=== PATIENT | female | born 1935 | race Caucasian/White ===

== ENCOUNTER 2017-12-12 18:11 | Emergency (ER) | payer OTHER ==
[~2017-12-12] VITALS: Ht 154.9 cm; Wt 62.3 kg
[~2017-12-12 18:11] MED LIST: ARICEPT 5 MG TAB5 MG PO; ASPIR 8181 M1 PO; BIOFREEZE118 ML PO; CALCIUM500 MG PO; CATALYN PO; CIPRO500 MG PO; DULOXETINE HCL30 MG PO; FLAGYL500 MG PO; GABAPENTIN 100100 MG PO; GLUCOSAMINE HC500 MG PO; HYDROCODONE-AP1 EAC6 PO; LEVOTHYROXINE 0.1 MG PO; LEVOTHYROXINE0.05 MG PO; MIRALAX17 GM PO; OMEGA-31000 M1 PO; ONDANSETRON HCL4 M2 PO; RENATROPHIN PO; SYSTANE 0.3-0.1 EACH OPHTHALMIC; ZANAFLEX4 MG PO; ZESTRIL10 MG PO; ZOCOR20 MG PO; [UNRECOGNIZED DRUG - REMARK]
[2017-12-12 18:33] LABS: URINE BILIRUBIN NEGATIVE (Negative); URINE BLOOD TRACE (Negative); URINE CLARITY CLEAR; URINE COLOR YELLOW; URINE GLUCOSE-RANDOM NEGATIVE (Negative); URINE KETONES 1+ (Negative); URINE LEUKOCYTES-REFLEX NEGATIVE (Negative); URINE NITRITE-REFLEX NEGATIVE (Negative); URINE PROTEIN NEGATIVE (Negative); URINE SPECIFIC GRAVITY 1.015 (1.005-1.030); URINE UROBILINOGEN 0.2 E.U./dl (0.2-1.0)
[2017-12-12 18:36] LABS: ABSOLUTE LYMPHOCYTES 0.9 thou/uL (0.8-5.3); ABSOLUTE MONOCYTES 0.3 thou/uL (0.0-1.2); ABSOLUTE NEUTROPHILS 5.7 thou/uL (1.6-8.1); BASOPHILS 0.4 %; EOSINOPHILS 0.1 %; HEMATOCRIT 47.9 % (37.0-47.0); HEMOGLOBIN 16.2 gm/dL (12.0-15.0); LYMPHOCYTES 12.7 %; MCH 32.1 pg (26.0-34.0); MCHC 33.8 g/dL (28.0-37.0); MCV 94.8 fL (80.0-100.0); MONOCYTES 4.5 %; MPV 8.7 fl. (7.2-11.1); NUCLEATED RBCS 0 /100WBC; PLATELET COUNT* 152 thou/uL (150-400); POLYS 82.3 %; RBC 5.05 mil/uL (4.20-5.00); RDW-CV 12.7 % (10.5-14.5); WBC 6.9 thou/uL (4.0-11.0)
[2017-12-12 18:43] LABS: ANION GAP 10 mmol/L (7-16); APTT 28.3 Seconds (25.0-31.3); BUN 14 mg/dL (7-18); CHLORIDE 96 mmol/L (98-107); CO2 28 mmol/L (21-32); GLUCOSE 151 mg/dL (70-99); INR 1.1; POTASSIUM 3.3 mmol/L (3.5-5.1); PROTIME 10.7 Seconds (9.20-11.50); SODIUM 134 mmol/L (136-145)
[2017-12-12 18:50] LABS: ALBUMIN 4.2 g/dL (3.4-5.0); ALKALINE PHOSPHATASE 98 U/L (46-116); LIPASE 361 U/L (73-393); SGOT 33 U/L (15-37); SGPT 31 U/L (30-65); TOTAL BILIRUBIN 0.6 mg/dL (<0.1-1.0); TOTAL PROTEIN 7.2 g/dL (6.4-8.2); TROPONIN-I LEVEL <0.06 ng/mL (<0.06)
[2017-12-12] MEDS ORDERED: ZOFRAN ODT4 MG PO (21:20)
[2017-12-12 21:45] VITALS: BP 178/88
--- NOTE | 2017-12-13 11:02 | EKG ---
[place] [address] ELECTROCARDIOGRAM REPORT Name: RAMESH DONAHUE Room: [facility]#: [id number] Admission: 12/12/17 Attend Phys: Discharge: 12/12/17 Date of : 37 Report #: [id number] THIS REPORT FOR: //name// [facility] ED Test Date: 2017-12-12 Test Time: 18:25:41 Pat Name: RAMESH DONAHUE Department: Room: Gender: F Student Recruiter: Josse ROSE : 1935 Requested By: Vinny Mathew Order Number: [id number] MD: Artemio Patton Measurements Intervals [place] Rate: 58 P: 75 OR: 230 QRS: 44 QRSD: 97 T: 27 QT: 468 QTc: 460 Interpretive Statements Sinus rhythm Atrial premature complex Prolonged OR interval Probable left atrial enlargement Compared to ECG 07/10/2015 09:20:22 Atrial premature complex(es) now present Electronically Signed On 12-13-2017 11:01:56 PUBLIC POLICY MANAGER by Artemio Patton [email or web address] <ELECTRONICALLY SIGNED> By: Artemio Patton MD, [facility] 12/13/17 110 182 24 Artemio Patton MD, [facility] /EPI
== END 2017-12-12 21:48 | disposition home or self-care (01) ==
LOC: M.ERS 18:11
PROVIDERS: Family Medicine
DX: R11.2 Nausea with vomiting, unspecified (principal); E86.0 Dehydration; I10 Essential (primary) hypertension; M19.90 Unspecified osteoarthritis, unspecified site; Z88.0 Allergy status to penicillin; Z88.2 Allergy status to sulfonamides

== ENCOUNTER → 2018-11-25 | Outpatient (CLI) | payer OTHER ==
[~2018-11-25] MED LIST changes: +ZOFRAN ODT4 MG PO
== END ==
LOC: M.RAD 13:43
DX: M47.895 Other spondylosis, thoracolumbar region (principal); M41.86 Other forms of scoliosis, lumbar region; R19.7 Diarrhea, unspecified; R10.30 Lower abdominal pain, unspecified

== ENCOUNTER → 2019-09-26 | Outpatient (CLI) | payer OTHER | LOC: M.RAD 14:16 | DX: M11.261 Other chondrocalcinosis, right knee (principal); M11.262 Other chondrocalcinosis, left knee; M17.0 Bilateral primary osteoarthritis of knee ==